=== PATIENT | male | born 1980 | race Hispanic/Latino ===

== ENCOUNTER 2016-06-30 07:54 | Outpatient (CLI) | payer MEDICARE ==
[2016-06-30] MEDS ORDERED: NACL ONE ×2 (09:07→09:29)
--- NOTE | 2016-06-30 10:15 | Cat Scan Report ---
CT scan of chest with IV contrast: Compared to 10/25/12. History: Hodgkin lymphoma. Intrathoracic lymph nodes. Findings: No endobronchial lesion. There is nodular density with calcified wall noted at the anterior mediastinum measuring 1.6 cm in diameter without significant interval change. The inferiorly located density in the previous study is not visualized on the present study. No mediastinal adenopathy is noted. No pleural pericardial effusion. Fibrosis and scarring is noted in the left upper lobe adjacent to mediastinum without significant interval change. Fibrosis and scarring noted in the right upper lobe which was not seen in the previous study. Bilateral faint ground glass densities are noted at the lower lobes which probably represents early interstitial fibrosis among other causes. Normal liver ,spleen and pancreas. Dilated common bile duct measuring 1.1 cm in diameter. Normal gallbladder. Impression: Findings as detailed above. No evidence of adenopathy. Dilated common bile duct. If clinically indicated further evaluation advised.
--- NOTE | 2016-06-30 10:51 | Cat Scan Report ---
CT scan of abdomen and pelvis with IV contrast: History: Hodgkin lymphoma intrathoracic lymph nodes. Findings: Normal liver spleen and pancreas. Dilated common bile duct without dilatation of intrahepatic ducts. Common bile duct diameter 1.1 cm. Normal adrenals kidney parenchyma and bladder. No free pelvic fluid or adenopathy. No evidence of appendicitis or diverticulitis. Gaseous colon with minimal stool in colon. No bony abnormality. Impression: Dilated common bile duct. No mass in the pancreas. No intrahepatic duct dilatation. Gaseous colon with minimal stool in colon.
== END 2016-06-30 07:55 | disposition home or self-care (01) ==
LOC: CT 07:54
PROVIDERS: ATTEND Internal Medicine Hematology & Oncology
DX: C81.72 Other Hodgkin lymphoma, intrathoracic lymph nodes (principal); L13.8 Other specified bullous disorders; L81.9 Disorder of pigmentation, unspecified; J84.10 Pulmonary fibrosis, unspecified
CPT/HCPCS: 71260; 74177; Q9967

== ENCOUNTER 2016-11-24 17:27 | Emergency (ER) | payer MEDICARE ==
[2016-11-24 18:11] LABS: Basophils % (Auto) 0.7 % (0.0-1.8); Eosinophils % (Auto) 1.8 % (0.0-4.3); Hematocrit 44.8 % (35.5-45.6); Hemoglobin 15.4 gm/dl (11.8-15.2); Mean Corpuscular HGB Conc 34 % (32-34); Mean Corpuscular Hemoglobin 32 pg (28-32); Mean Corpuscular Volume 92 fl (84-94); Platelet Count 249 K/mm3 (140-440); Red Blood Count 4.88 M/mm3 (3.65-5.03); Red Cell Distribution Width 14.5 % (13.2-15.2); White Blood Count 6.5 K/mm3 (4.5-11.0)
[2016-11-24 18:28] LABS: BUN/Creatinine Ratio 17.14; Blood Urea Nitrogen 12 mg/dL (9-20); Calcium 9.9 mg/dL (8.4-10.2); Carbon Dioxide 24 mmol/L (22-30); Glucose 98 mg/dL (75-100)
[2016-11-24 18:29] LABS: Anion Gap 19 mmol/L; Chloride 101.8 mmol/L (98-107); Potassium 3.9 mmol/L (3.6-5.0); Sodium 141 mmol/L (137-145)
--- NOTE | 2016-11-24 19:14 | XRay Report ---
FINAL REPORT PROCEDURE: XR CHEST ROUTINE 2V TECHNIQUE: Two views of the chest are obtained HISTORY: CHEST PAIN / SHORT OF BREATH COMPARISON: No prior studies are available for comparison. FINDINGS: The heart is normal in size. There is no focal infiltrate, pneumothorax or pleural effusion. Mild hyperinflation is seen in the lungs. IMPRESSION: There is mild hyperinflation of the lungs.
[2016-11-24] MEDS ORDERED: NACL ONE (22:13)
--- NOTE | 2016-11-24 22:34 | Emergency Department Report ---
HPI - General Chief Complaint: Chest Pain Time Seen by Provider: 11/24/16 21:34 - HPI HPI: Chest pain ED Past Medical Hx - Past Medical History Hx of Cancer: Yes Hx Headaches / Migraines: Yes (MIGRAINE) Hx Seizures: Yes Hx Psychiatric Treatment: Yes (anxiety) Additional medical history: Hodgkins Lymphoma - 5 yr remission. CHRONIC BACK PAIN - Surgical History Hx Appendectomy: Yes Additional Surgical History: right ear surgery x3, cyst removal from left hand - Social History Smoking Status: Current Every Day Smoker Substance Use Type: Alcohol - Medications Home Medications: Home Medications Medication Instructions Recorded Confirmed Last Taken Type Buspirone HCl [busPIRone] 15 mg PO BID 11/24/16 11/24/16 11/24/16 09:00 History Gabapentin [Neurontin] 800 mg PO Q8H 11/24/16 11/24/16 11/24/16 09:00 History LORazepam [LORazepam] 1 mg PO TID 11/24/16 11/24/16 11/24/16 09:00 History levETIRAcetam [Keppra TAB] 500 mg PO BID 11/24/16 11/24/16 11/24/16 09:00 History traMADol [Ultram] 50 mg PO Q6HR PRN #20 tablet 11/25/16 Unknown Rx ED Review of Systems ROS: Stated complaint: CHEST/LFT ARM AND HEAD NUMBNESS Other details as noted in HPI Comment: All other systems reviewed and negative Cardiovascular: chest pain Gastrointestinal: nausea Physical Exam - Physical Exam Vital Signs: Vital Signs 11/24/16 11/24/16 17:41 20:49 Temperature 98.4 F Pulse Rate 70 75 Respiratory 16 20 Rate Blood Pressure 111/64 Blood Pressure 107/59 [Left] O2 Sat by Pulse 98 99 Oximetry Physical Exam: Gen. alert and oriented 3 in no distress Head atraumatic normocephalic Eyes PERR LA EOMI Chest regular rate and rhythm normal S1-S2 lungs clear bilaterally Abdomen soft nondistended Back no point tenderness paravertebral tenderness Neuro no focal deficit. Psych normal mood. ED Course Vital Signs 11/24/16 11/24/16 17:41 20:49 Temperature 98.4 F Pulse Rate 70 75 Respiratory 16 20 Rate Blood Pressure 111/64 Blood Pressure 107/59 [Left] O2 Sat by Pulse 98 99 Oximetry - Reevaluation(s) Reevaluation #1: 11/25/16 00:38 Patient feeling better and wants to go home, advised to follow up with PCP if symptoms continue, return to ER if symptoms worsen. ED Medical Decision Making - Lab Data Result diagrams: 11/24/16 17:49 11/24/16 17:49 Critical care attestation.: If time is entered above; I have spent that time in minutes in the direct care of this critically ill patient, excluding procedure time. ED Disposition Clinical Impression: Chest pain Disposition: DC- TO HOME OR SELFCARE Is pt being admited?: No Does the pt Need Aspirin: No Condition: Stable Instructions: Chest Pain (ED) Prescriptions: traMADol [Ultram] 50 mg PO Q6HR PRN #20 tablet PRN Reason: Pain Referrals: CAN REYNOLDS MD [Primary Care Provider] - 3-5 Days
[2016-11-24] MEDS ORDERED: MORPHINE IV ONE (23:11)
[2016-11-24] MEDS ORDERED: ZOFRAN IV ONE (23:12)
[2016-11-24 23:21] VITALS: BP 108/60
--- NOTE | 2016-11-24 23:42 | Cat Scan Report ---
FINAL REPORT PROCEDURE: CT ANGIO CHEST TECHNIQUE: Computerized tomographic angiography of the chest was performed after the IV injection of iodinated nonionic contrast including image processing. The image data was postprocessed using 2-dimensional multiplanar reformatted (MPR) and 3-dimensional (MIP and/or volume rendered) techniques. HISTORY: CP shortness of breath COMPARISON: Chest x-ray from same day FINDINGS: Mild atelectasis and scarring is suspected medially in the left upper lobe of the lungs. No lung nodules are seen. Minimal hypoventilatory changes are suspect in the lower lungs. No pleural effusion or pneumothorax is seen. In the superior mediastinum near the area of scarring there is a rim calcified rounded soft tissue density measuring 1.6 x 1.5 cm. This could be a lymph node given the location. There is a mildly enlarged precarinal lymph node measuring 1.6 x 1.1 cm. Probable enlarged AP window lymph node is seen measuring 1.3 x 1.0 cm. Likely mild scarring is seen in the left hilum without a discrete lymph node being identified. There is splenomegaly. Likely mild adrenal hyperplasia is seen. The heart is normal in size. The thoracic aorta is normal in size without evidence of dissection. No pulmonary embolus is seen. IMPRESSION: No pulmonary embolus is seen. Mild mediastinal lymphadenopathy is seen, with rim calcification in a prevascular lymph node. Lymphoma or malignant lymphadenopathy is not completely excluded. There is mild scarring and atelectasis in the left upper lobe medially near the mediastinum.
== END 2016-11-25 01:10 | disposition home or self-care (01) ==
LOC: ED 17:27
DX: R07.9 Chest pain, unspecified (principal); G43.909 Migraine, unspecified, not intractable, without status migrainosus; F17.200 Nicotine dependence, unspecified, uncomplicated
CPT/HCPCS: 36415; 71020; 71275; 80048; 84484; 85025; 93005; 93010; 96374; 96375; 99285; J2270; J2405; Q9967

== ENCOUNTER 2016-12-06 08:24 | Outpatient (CLI) | payer MEDICARE ==
[2016-12-06] MEDS ORDERED: NACL ONE (10:43)
--- NOTE | 2016-12-06 14:12 | Cat Scan Report ---
CT CHEST WITH CONTRAST: HISTORY: Hodgkin's lymphoma. TECHNIQUE: Helical CT following IV contrast. Sagittal and coronal reformatted images. COMPARISON: 06/30/16. FINDINGS: The lungs are clear. No evidence for nodule, infiltrate, pleural effusion or pneumothorax. Minor linear scarring in the medial left upper lobe is stable. This may be secondary to radiation changes. The thyroid gland, tracheobronchial tree, esophagus, heart, pericardium and mediastinal vessels are within normal limits. Peripherally calcified lymph node in the anterior mediastinum is stable in size measuring 1.9 cm. This probably represents previously treated lymphadenopathy. No new thoracic lymphadenopathy is appreciated. The bony structures are intact. No evidence for suspicious bone lesion or fracture. Minor degenerative changes are noted. IMPRESSION: Stable findings since 06/30/16. No new thoracic adenopathy or suspicious mass is detected.
--- NOTE | 2016-12-06 14:17 | Cat Scan Report ---
CT SCAN OF THE ABDOMEN AND PELVIS WITH CONTRAST: HISTORY: Hodgkin's lymphoma. TECHNIQUE: Helical CT in 1.25mm intervals following IV contrast. Sagittal and coronal reconstructions. Comparison: 06/30/16. FINDINGS: The liver is normal size and attenuation. No suspicious liver mass or parenchymal disease. Mild prominence of the central intrahepatic biliary ducts is again noted and unchanged. No evidence for cholelithiasis. The pancreas is unremarkable. There is borderline splenomegaly measuring 14 7 m in length which is unchanged. No focal splenic lesion. The kidneys, adrenal glands, ureters and bladder are unremarkable. Normal prostate gland. The bowel loops are normal caliber and wall thickness. The appendix has been surgically removed. The aorta is normal caliber. There is no evidence for abdominal or pelvic adenopathy. The bony structures are intact. No suspicious bony lesion. IMPRESSION: No evidence for disease recurrence or metastasis in the abdomen. No lymphadenopathy is visualized. The spleen is borderline enlarged measuring 14 cm which is unchanged. No focal splenic lesion. No significant change since 06/30/16.
--- NOTE | 2016-12-06 14:21 | Nuclear Medicine Report ---
BONE SCAN: History: Bone pain, lymphoma. Right hip pain. Comparison: CT chest abdomen and pelvis with contrast performed the same day. After injection of isotope, gamma camera imaging of the bony system was done. There is a normal uptake of isotope throughout the bony structures without areas of significantly increased or decreased uptake. Normal uptake in the urinary system is seen. IMPRESSION: Normal bone scan. No suspicious bony lesions are detected. No abnormal uptake in the right hip region.
== END 2016-12-06 08:25 | disposition home or self-care (01) ==
LOC: NM 08:24
PROVIDERS: ATTEND Internal Medicine Hematology & Oncology
DX: C81.72 Other Hodgkin lymphoma, intrathoracic lymph nodes (principal); L13.8 Other specified bullous disorders; L81.9 Disorder of pigmentation, unspecified; M25.551 Pain in right hip; M89.9 Disorder of bone, unspecified; F17.200 Nicotine dependence, unspecified, uncomplicated; G43.909 Migraine, unspecified, not intractable, without status migrainosus
CPT/HCPCS: 71260; 74177; 78306; A9503; Q9967

== ENCOUNTER 2017-01-08 09:42 | Outpatient (CLI) | payer MEDICAID, MEDICARE ==
--- NOTE | 2017-01-09 13:03 | Vascular Lab Report ---
Right Lower Extremity Venous Duplex Study: Reason for Exam: Pain of the right lower extremity. Comments on the Right: All veins visualized are freely compressible without evidence of internal echogenicity. Flow is spontaneous and phasic throughout. No evidence of acute or chronic thrombus is seen in any of the vessels visualized. Comments on the Left: A limited duplex study was done of the proximal veins of the left lower extremity. All veins visualized are freely compressible without evidence of internal echogenicity. Flow is spontaneous and phasic throughout. No evidence of acute or chronic thrombus is seen in any of the vessels visualized. Impression: No evidence of acute or chronic deep venous thrombosis in the right lower extremity.
== END 2017-01-08 09:43 | disposition home or self-care (01) ==
LOC: VAS 09:42
PROVIDERS: ATTEND Internal Medicine Hematology & Oncology
DX: M79.661 Pain in right lower leg (principal); C81.72 Other Hodgkin lymphoma, intrathoracic lymph nodes; L13.8 Other specified bullous disorders; L81.9 Disorder of pigmentation, unspecified

== ENCOUNTER 2017-11-03 21:03 | Emergency (ER) | payer MEDICARE ==
[2017-11-03 22:02] VITALS: BP 151/92
[2017-11-03 22:54] LABS: Basophils # (Auto) 0.2 K/mm3 (0.0-0.1); Eosinophils # (Auto) 0.1 K/mm3 (0.0-0.4); Eosinophils % (Auto) 1.6 % (0.0-4.3); Hematocrit 45.8 % (35.5-45.6); Hemoglobin 15.5 gm/dl (11.8-15.2); Lymphocytes # (Auto) 1.7 K/mm3 (1.2-5.4); Lymphocytes % (Auto) 20.1 % (13.4-35.0); Mean Corpuscular HGB Conc 34 % (32-34); Mean Corpuscular Hemoglobin 31 pg (28-32); Mean Corpuscular Volume 92 fl (84-94); Monocytes # (Auto) 0.4 K/mm3 (0.0-0.8); Platelet Count 282 K/mm3 (140-440); Red Blood Count 4.97 M/mm3 (3.65-5.03); Red Cell Distribution Width 13.6 % (13.2-15.2)
[2017-11-03 23:13] LABS: Alanine Aminotransferase 13 units/L (7-56); Albumin 4.5 g/dL (3.9-5); BUN/Creatinine Ratio 14; Blood Urea Nitrogen 10 mg/dL (9-20); Hemolysis Index 3
== END 2017-11-03 22:13 | disposition left against medical advice (07) ==
LOC: ED 21:03
DX: R56.9 Unspecified convulsions (principal); Z53.21 Procedure and treatment not carried out due to patient leaving prior to being seen by health care provider
CPT/HCPCS: 36415; 80053; 83735; 85025

== ENCOUNTER 2018-01-11 19:19 | Emergency (ER) | payer MEDICARE ==
[2018-01-11 19:53] VITALS: BP 126/77
[2018-01-11] MEDS ORDERED: NACL 0.9% 1000 ML 1,000 ML IV ONE (19:54)
[2018-01-11 20:19] LABS: Basophils # (Auto) 0.1 K/mm3 (0.0-0.1); Basophils % (Auto) 0.9 % (0.0-1.8); Eosinophils # (Auto) 0.3 K/mm3 (0.0-0.4); Eosinophils % (Auto) 3.7 % (0.0-4.3); Hematocrit 47.1 % (35.5-45.6); Hemoglobin 16.1 gm/dl (11.8-15.2); Lymphocytes # (Auto) 2.1 K/mm3 (1.2-5.4); Lymphocytes % (Auto) 30.9 % (13.4-35.0); Mean Corpuscular HGB Conc 34 % (32-34); Mean Corpuscular Hemoglobin 31 pg (28-32); Mean Corpuscular Volume 91 fl (84-94); Monocytes # (Auto) 0.6 K/mm3 (0.0-0.8); Monocytes % (Auto) 8.1 % (0.0-7.3); Platelet Count 280 K/mm3 (140-440); Red Blood Count 5.17 M/mm3 (3.65-5.03); Red Cell Distribution Width 14.5 % (13.2-15.2)
[2018-01-11 21:08] LABS: Alanine Aminotransferase 13 units/L (7-56); Albumin 4.4 g/dL (3.9-5); BUN/Creatinine Ratio 16; Blood Urea Nitrogen 14 mg/dL (9-20); Calcium 9.4 mg/dL (8.4-10.2); Hemolysis Index 7
[2018-01-11 21:50] LABS: Bacteria,Urine 1+ /HPF (Negative); Bilirubin,Urine NEG (Negative); Blood,Urine NEG (Negative); Color,Urine Yellow (Yellow); Mucus,Urine FEW /HPF; Protein,Urine <15 mg/dL mg/dL (Negative)
== END 2018-01-12 | disposition left against medical advice (07) ==
LOC: ED 19:19
DX: R51 Headache (principal); Z53.21 Procedure and treatment not carried out due to patient leaving prior to being seen by health care provider
CPT/HCPCS: 36415; 80053; 81001; 85025

== ENCOUNTER 2018-10-03 12:51 | Emergency (ER) | payer MEDICARE ==
[2018-10-03 13:05] VITALS: BP 115/76
--- NOTE | 2018-10-03 13:05 | Emergency Department Report ---
Blank Doc - Documentation Documentation: This is a 37-year-old male that presents with right hand pain. This initial assessment/diagnostic orders/clinical plan/treatment(s) is/are subject to change based on patient's health status, clinical progression and re- assessment by fellow clinical providers in the ED. Further treatment and workup at subsequent clinical providers discretion. Patient/guardians urged not to elope from the ED as their condition may be serious if not clinically assessed and managed. Initial orders include: 1- Patient sent to [facility] for further evaluation and treatment 2- xray
--- NOTE | 2018-10-03 13:17 | XRay Report ---
RIGHT HAND, 3 views: History: Right hand pain. The bony architecture is intact. Bony alignment is normal. No soft tissue abnormalities are seen. The joint spaces appear preserved. IMPRESSION: Normal right hand.
--- NOTE | 2018-10-03 14:34 | Emergency Department Report ---
ED Upper Extremity Inj HPI - General Chief Complaint: Extremity Injury, Upper Stated Complaint: R HAND SWOLLEN/INJURY Time Seen by Provider: 10/03/18 13:03 Source: patient Mode of arrival: Ambulatory Limitations: No Limitations - History of Present Illness Initial Comments: This is a 37-year-old male who presents to the emergency room with swe lling and pain to the right hand. Patient states he punched a washing machine yesterday and noticed bleeding and swelling over the third PIP. He is taking NSAIDs for pain with relief. He is concerned of possible fracture because of limited ROM and pain. Denies weakness, numbness or tingling, or obvious deformity. MD Complaint: Injury to:: right, hand Onset/Timin -: days(s) Other Extremity Injury: Hand: Right Other Injuries: none Handedness: right Place: home Severity scale (0 -10): 7 Improves With: medication Worsens With: movement of extremity Context: direct blow Associated Symptoms: denies other symptoms Treatments Prior to Arrival: NSAIDS - Related Data Home Medications Medication Instructions Recorded Confirmed Last Taken Buspirone HCl [busPIRone] 15 mg PO BID 11/24/16 11/24/16 11/24/16 09:00 Gabapentin [Neurontin] 800 mg PO Q8H 11/24/16 11/24/16 11/24/16 09:00 LORazepam 1 mg PO TID 11/24/16 11/24/16 11/24/16 09:00 levETIRAcetam [Keppra TAB] 500 mg PO BID 11/24/16 11/24/16 11/24/16 09:00 Previous Rx's Medication Instructions Recorded Last Taken Type HYDROcodone/APAP 5-325 [Vanderbilt 1 each PO Q6HR PRN #5 tablet 11/25/16 Unknown Rx 5/325] Ibuprofen [Motrin] 800 mg PO Q8HR #30 tablet 02/19/18 Unknown Rx Sulfamethoxazole/Trimethoprim 1 each PO BID #20 tablet 02/19/18 Unknown Rx [Bactrim DS TAB] Benzonatate [Tessalon Perle] 100 mg PO TID PRN #30 capsule 04/22/18 Unknown Rx Fluticasone [Flonase] 1 spray NS QDAY #1 bottle 04/22/18 Unknown Rx Loratadine [Claritin] 10 mg PO DAILY #30 tablet 04/22/18 Unknown Rx guaiFENesin/DEXTROMETHORPHAN 1 each PO BID #14 tab.er.12h 04/22/18 Unknown Rx [Mucinex Dm ER 600-30 mg Tablet] Allergies Allergy/AdvReac Type Severity Reaction Status Date / Time No Known Allergies Allergy Verified 11/24/16 20:48 ED Review of Systems ROS: Stated complaint: R HAND SWOLLEN/INJURY Other details as noted in HPI Constitutional: denies: chills, fever Respiratory: denies: cough, shortness of breath, wheezing Cardiovascular: denies: chest pain, palpitations Gastrointestinal: denies: abdominal pain, nausea, diarrhea Musculoskeletal: arthralgia (right hand swelling and pain). denies: back pain, joint swelling Skin: lesions. denies: rash Neurological: denies: headache, weakness, paresthesias Psychiatric: denies: anxiety, depression ED Past Medical Hx - Past Medical History Previous Medical History?: Yes Hx Headaches / Migraines: Yes (MIGRAINE) Hx Seizures: Yes Hx Psychiatric Treatment: Yes (anxiety) Additional medical history: Hodgkins Lymphoma - 6 yr remission. CHRONIC BACK PAIN - Surgical History Hx Appendectomy: Yes Additional Surgical History: right ear surgery x3, cyst removal from left hand - Social History Smoking Status: Current Every Day Smoker Substance Use Type: None - Medications Home Medications: Home Medications Medication Instructions Recorded Confirmed Last Taken Type Buspirone HCl [busPIRone] 15 mg PO BID 11/24/16 11/24/16 11/24/16 09:00 History Gabapentin [Neurontin] 800 mg PO Q8H 11/24/16 11/24/16 11/24/16 09:00 History LORazepam 1 mg PO TID 11/24/16 11/24/16 11/24/16 09:00 History levETIRAcetam [Keppra TAB] 500 mg PO BID 11/24/16 11/24/16 11/24/16 09:00 History HYDROcodone/APAP 5-325 [Vanderbilt 1 each PO Q6HR PRN #5 tablet 11/25/16 Unknown Rx 5/325] Ibuprofen [Motrin] 800 mg PO Q8HR #30 tablet 02/19/18 Unknown Rx Sulfamethoxazole/Trimethoprim 1 each PO BID #20 tablet 02/19/18 Unknown Rx [Bactrim DS TAB] Benzonatate [Tessalon Perle] 100 mg PO TID PRN #30 capsule 04/22/18 Unknown Rx Fluticasone [Flonase] 1 spray NS QDAY #1 bottle 04/22/18 Unknown Rx Loratadine [Claritin] 10 mg PO DAILY #30 tablet 04/22/18 Unknown Rx guaiFENesin/DEXTROMETHORPHAN 1 each PO BID #14 tab.er.12h 04/22/18 Unknown Rx [Mucinex Dm ER 600-30 mg Tablet] ED Physical Exam - General Limitations: No Limitations General appearance: alert, in no apparent distress - Respiratory Respiratory exam: Present: normal lung sounds bilaterally. Absent: respiratory distress - Cardiovascular Cardiovascular Exam: Present: regular rate, normal rhythm. Absent: systolic murmur, diastolic murmur, rubs, gallop - GI/Abdominal GI/Abdominal exam: Present: soft, normal bowel sounds - Expanded Upper Extremity Exam Right Elbow exam: Present: normal inspection, full ROM Forearm Wrist exam: Present: normal inspection, full ROM Hand Wrist exam: Present: full ROM (pain with ROM), tenderness, swelling, abrasion (1/2 cm abrasion over 3rd PIP, swelling and tenderness on palpation, no discharge). Absent: laceration, ecchymosis, deformity, crepidus, dislocation, erythema, amputation, nail avulsion, subungual hematoma Neuro motor exam: Present: wrist extension intact, thumb opposition intact, thumb IP flexion intact, thumb adduction intact, fingers 2-5 abduction intact Neurosensory exam: Present: radial nerve intact, ulnar nerve intact, median nerve intact Vascular: Present: normal capillary refill, radial pulse - Neurological Exam Neurological exam: Present: alert, oriented X3, normal gait - Psychiatric Psychiatric exam: Present: normal affect, normal mood - Skin Skin exam: Present: warm, dry, intact, normal color. Absent: rash ED Course Vital Signs 10/03/18 13:03 Temperature 98.2 F Pulse Rate 83 Respiratory 16 Rate Blood Pressure 115/76 O2 Sat by Pulse 98 Oximetry ED Medical Decision Making - Radiology Data Radiology results: report reviewed RIGHT HAND, 3 views: History: Right hand pain. The bony architecture is intact. Bony alignment is normal. No soft tissue abnormalities are seen. The joint spaces appear preserved. IMPRESSION: Normal right hand. - Medical Decision Making Patient was examined by me. Vitals are normal and patient is in no acute distress. Obtained a x-ray of right hand with no acute findings. Findings are suggestive of strain/sprain hand. Patient given handout on RICE therapy. He refused orville wrap. Instructed to take OTC NSAIDs for pain. Plan discussed with patient to discharge home and treat outpatient. He agrees with ER plan. Patient discharged home in stable condition. Follow up with PCP in 2-3 days. Critical care attestation.: If time is entered above; I have spent that time in minutes in the direct care of this critically ill patient, excluding procedure time. ED Disposition Clinical Impression: Hand pain, right, Sprain and strain of hand Disposition: DC- TO HOME OR SELFCARE Is pt being admited?: No Does the pt Need Aspirin: No Condition: Stable Instructions: Hand Sprain (ED), RICE Therapy (ED) Additional Instructions: Rest Use ice or heat on affected area for 20 minutes and off for 2 hours. Take [id number] pain medication as needed for pain. Follow up with Primary Care Provider in 2-3 days. Referrals: [facility] [Outside] - 3-5 Days [facility] [Outside] - 3-5 Days [facility] [Outside] - 3-5 Days Forms: Work/School Release Form(ED) Time of Disposition: 14:31
== END 2018-10-03 14:43 | disposition home or self-care (01) ==
LOC: ED 12:51
DX: S63.91XA Sprain of unspecified part of right wrist and hand, initial encounter (principal); G43.909 Migraine, unspecified, not intractable, without status migrainosus; M54.9 Dorsalgia, unspecified; G89.29 Other chronic pain; F17.200 Nicotine dependence, unspecified, uncomplicated; Z90.49 Acquired absence of other specified parts of digestive tract; Z85.71 Personal history of Hodgkin lymphoma; W22.09XA Striking against other stationary object, initial encounter; Y93.89 Activity, other specified; Y92.098 Other place in other non-institutional residence as the place of occurrence of the external cause; Y99.8 Other external cause status
CPT/HCPCS: 99283

== ENCOUNTER 2019-04-27 08:57 | Emergency (ER) | payer MEDICARE ==
[2019-04-27] MEDS ORDERED: IPRATROPIUM/ALBUTEROL SULFATE 3 ML AMPUL.NEB IH ONE ×2 (11:30→14:34)
--- NOTE | 2019-04-27 12:18 | XRay Report ---
CHEST 2 VIEWS INDICATION / CLINICAL INFORMATION: MAIN: productive cough for 2 days. COMPARISON: Chest CT 12/06/2016 FINDINGS: SUPPORT DEVICES: None. HEART / MEDIASTINUM: Normal heart size. Calcified lymph node in the anterior mediastinum best seen on previous chest CTs is noted on the lateral projection. LUNGS / PLEURA: No significant pulmonary or pleural abnormality. No pneumothorax. ADDITIONAL FINDINGS: No significant additional findings. IMPRESSION: No acute finding. Signer Name: Jason Spear MD Signed: 04/27/2019 12:13 PM Workstation Name: [id number]
--- NOTE | 2019-04-27 12:29 | Emergency Department Report ---
- General Chief Complaint: Upper Respiratory Infection Stated Complaint: FLU LIKE SYMPTOMS Time Seen by Provider: 04/27/19 11:21 Source: patient Mode of arrival: Ambulatory Limitations: No Limitations - History of Present Illness Initial Comments: patient is a 38-year-old male presents emergency room with complaints of a productive cough that began yesterday. He has associated generalized body aches and sore throat. He denies any ear pain, vomiting, diarrhea, fever. He denies any sick contacts. He has a past medical history of Hodgkin's lymphoma in remission and seizures. He denies any allergies medications. Patient states he is a current smoker. - Related Data Home Medications Medication Instructions Recorded Confirmed Last Taken Buspirone HCl [busPIRone] 15 mg PO BID 11/24/16 11/24/16 11/24/16 09:00 Gabapentin [Neurontin] 800 mg PO Q8H 11/24/16 11/24/16 11/24/16 09:00 LORazepam 1 mg PO TID 11/24/16 11/24/16 11/24/16 09:00 levETIRAcetam [Keppra TAB] 500 mg PO BID 11/24/16 11/24/16 11/24/16 09:00 Previous Rx's Medication Instructions Recorded Last Taken Type HYDROcodone/APAP 5-325 [[place] 1 each PO Q6HR PRN #5 tablet 11/25/16 Unknown Rx 5/325] Ibuprofen [Motrin] 800 mg PO Q8HR #30 tablet 02/19/18 Unknown Rx Sulfamethoxazole/Trimethoprim 1 each PO BID #20 tablet 02/19/18 Unknown Rx [Bactrim DS TAB] Benzonatate [Tessalon Perle] 100 mg PO TID PRN #30 capsule 04/22/18 Unknown Rx Fluticasone [Flonase] 1 spray NS QDAY #1 bottle 04/22/18 Unknown Rx Loratadine (Nf) [Claritin] 10 mg PO DAILY #30 tablet 04/22/18 Unknown Rx guaiFENesin/DEXTROMETHORPHAN 1 each PO BID #14 tab.er.12h 04/22/18 Unknown Rx [Mucinex Dm ER 600-30 mg Tablet] ALBUTEROL Inhaler (OR & NICU) 2 puff IH QID PRN #8.5 gram 04/27/19 Unknown Rx [ProAir HFA Inhaler] Azithromycin [Zithromax TAB] 250 mg PO QDAY 5 Days #6 tablet 04/27/19 Unknown Rx Benzonatate [Tessalon Perles] 100 mg PO Q8HR PRN #20 capsule 04/27/19 Unknown Rx Prednisone [predniSONE 10 mg 10 mg PO .TAPER #1 tab.ds.pk 04/27/19 Unknown Rx (6-Day Pack, 21 Tabs)] Allergies Allergy/AdvReac Type Severity Reaction Status Date / Time No Known Allergies Allergy Verified 11/24/16 20:48 ED Review of Systems ROS: Stated complaint: FLU LIKE SYMPTOMS Other details as noted in HPI Comment: All other systems reviewed and negative ED Past Medical Hx - Past Medical History Previous Medical History?: Yes Hx Headaches / Migraines: Yes (MIGRAINE) Hx Seizures: Yes Hx Psychiatric Treatment: Yes (anxiety) Additional medical history: Hodgkins Lymphoma - 6 yr remission. CHRONIC BACK PAIN - Surgical History Past Surgical History?: Yes Hx Appendectomy: Yes Additional Surgical History: right ear surgery x3, cyst removal from left hand - Social History Smoking Status: Current Every Day Smoker Substance Use Type: Alcohol, Marijuana - Medications Home Medications: Home Medications Medication Instructions Recorded Confirmed Last Taken Type Buspirone HCl [busPIRone] 15 mg PO BID 11/24/16 11/24/16 11/24/16 09:00 History Gabapentin [Neurontin] 800 mg PO Q8H 11/24/16 11/24/16 11/24/16 09:00 History LORazepam 1 mg PO TID 11/24/16 11/24/16 11/24/16 09:00 History levETIRAcetam [Keppra TAB] 500 mg PO BID 11/24/16 11/24/16 11/24/16 09:00 History HYDROcodone/APAP 5-325 [[place] 1 each PO Q6HR PRN #5 tablet 11/25/16 Unknown Rx 5/325] Ibuprofen [Motrin] 800 mg PO Q8HR #30 tablet 02/19/18 Unknown Rx Sulfamethoxazole/Trimethoprim 1 each PO BID #20 tablet 02/19/18 Unknown Rx [Bactrim DS TAB] Benzonatate [Tessalon Perle] 100 mg PO TID PRN #30 capsule 04/22/18 Unknown Rx Fluticasone [Flonase] 1 spray NS QDAY #1 bottle 04/22/18 Unknown Rx Loratadine (Nf) [Claritin] 10 mg PO DAILY #30 tablet 04/22/18 Unknown Rx guaiFENesin/DEXTROMETHORPHAN 1 each PO BID #14 tab.er.12h 04/22/18 Unknown Rx [Mucinex Dm ER 600-30 mg Tablet] ALBUTEROL Inhaler (OR & NICU) 2 puff IH QID PRN #8.5 gram 04/27/19 Unknown Rx [ProAir HFA Inhaler] Azithromycin [Zithromax TAB] 250 mg PO QDAY 5 Days #6 tablet 04/27/19 Unknown Rx Benzonatate [Tessalon Perles] 100 mg PO Q8HR PRN #20 capsule 04/27/19 Unknown Rx Prednisone [predniSONE 10 mg 10 mg PO .TAPER #1 tab.ds.pk 04/27/19 Unknown Rx (6-Day Pack, 21 Tabs)] ED Physical Exam - General Limitations: No Limitations General appearance: alert, in no apparent distress - Head Head exam: Present: atraumatic, normocephalic - Eye Eye exam: Present: normal appearance - ENT ENT exam: Present: mucous membranes moist - Respiratory Respiratory exam: Present: wheezes (very mild inspiratory wheeze). Absent: respiratory distress, rales, rhonchi, stridor, chest wall tenderness, accessory muscle use, decreased breath sounds, prolonged expiratory - Cardiovascular Cardiovascular Exam: Present: regular rate, normal rhythm, normal heart sounds. Absent: systolic murmur, diastolic murmur, rubs, gallop - Neurological Exam Neurological exam: Present: alert, oriented X3 - Psychiatric Psychiatric exam: Present: normal affect, normal mood - Skin Skin exam: Present: warm, dry, intact ED Course Vital Signs 04/27/19 04/27/19 04/27/19 09:01 11:09 15:23 Temperature 98.3 F 98.7 F Pulse Rate 94 H 72 Respiratory 20 16 18 Rate Blood Pressure 122/80 Blood Pressure 118/60 [Right] O2 Sat by Pulse 93 96 Oximetry ED Medical Decision Making - Lab Data Result diagrams: 04/27/19 11:58 04/27/19 11:57 Lab Results 04/27/19 04/27/19 04/27/19 Range/Units 11:54 11:57 11:58 WBC 5.0 (4.5-11.0) K/mm3 RBC 5.10 H (3.65-5.03) M/mm3 Hgb 16.0 H (11.8-15.2) gm/dl Hct 45.2 (35.5-45.6) % MCV 89 (84-94) fl MCH 31 (28-32) pg MCHC 35 H (32-34) % RDW 14.1 (13.2-15.2) % Plt Count 179 (140-440) K/mm3 Lymph % (Auto) 18.2 (13.4-35.0) % [place] % (Auto) 12.2 H (0.0-7.3) % Eos % (Auto) 0.1 (0.0-4.3) % Baso % (Auto) 0.9 (0.0-1.8) % Lymph # 0.9 L (1.2-5.4) K/mm3 [place] # 0.6 (0.0-0.8) K/mm3 Eos # 0.0 (0.0-0.4) K/mm3 Baso # 0.0 (0.0-0.1) K/mm3 Seg Neutrophils % 68.6 (40.0-70.0) % Seg Neutrophils # 3.4 (1.8-7.7) K/mm3 Sodium 134 L (137-145) mmol/L Potassium 3.7 (3.6-5.0) mmol/L Chloride 94.5 L (98-107) mmol/L Carbon Dioxide 21 L (22-30) mmol/L Anion Gap 22 mmol/L BUN 15 (9-20) mg/dL Creatinine 1.0 (0.8-1.5) mg/dL Estimated GFR > 60 ml/min BUN/Creatinine Ratio 15 % Glucose 80 (75-100) mg/dL Calcium 9.8 (8.4-10.2) mg/dL Influenza A (Rapid) Negative (Negative) Influenza B (Rapid) Negative (Negative) Vital Signs 04/27/19 04/27/19 04/27/19 09:01 11:09 15:23 Temperature 98.3 F 98.7 F Pulse Rate 94 H 72 Respiratory 20 16 18 Rate Blood Pressure 122/80 Blood Pressure 118/60 [Right] O2 Sat by Pulse 93 96 Oximetry - Radiology Data Radiology results: report reviewed chest XR no acute findings - Medical Decision Making patient is a 38-year-old male presents emergency room with complaints of a productive cough that began yesterday. He has associated generalized body aches and sore throat. He denies any ear pain, vomiting, diarrhea, fever. He denies any sick contacts. He has a past medical history of Hodgkin's lymphoma in remission and seizures. He denies any allergies medications. Patient states he is a current smoker. initial vitals with mild hypoxia, on repeat in exam room it is 95% on RA. labs are stable, mild dehydration, discussed oral rehydration with pt. rapid flu is negative. chest XR no acute findings. on exam: very mild inspiratory wheeze. Patient given DuoNeb and breath sounds are clear with no wheezing, rales, rhonchi. Given that patient is a smoker and is having a productive cough will treat patient for acute bronchitis. wells criteria is low risk for a PE. Patient given prescription for steroids, antibiotics, albuterol inhaler, cough medication. advised pt to please take medication as prescribed. Please consider stop smoking. Follow-up with primary care doctor the next 2-3 days. Return to the emergency room for any new or worsening symptoms. - Differential Diagnosis PNA, URI, influenza, viral syndrome, otitis, pharyngitis, bronchitis Critical care attestation.: If time is entered above; I have spent that time in minutes in the direct care of this critically ill patient, excluding procedure time. ED Disposition Clinical Impression: Acute bronchitis Qualifiers: Bronchitis organism: unspecified organism Qualified Code(s): J20.9 - Acute bronchitis, unspecified Disposition: DC-01 TO HOME OR SELFCARE Is pt being admited?: No Does the pt Need Aspirin: No Condition: Stable Instructions: How to Stop Smoking (ED), Acute Bronchitis (ED) Additional Instructions: Please take medication as prescribed. Please consider stop smoking. Follow-up with primary care doctor the next 2-3 days. Return to the emergency room for any new or worsening symptoms. Prescriptions: Prednisone [predniSONE 10 mg (6-Day Pack, 21 Tabs)] 10 mg PO .TAPER #1 tab.ds.pk ALBUTEROL Inhaler (OR & NICU) [ProAir HFA Inhaler] 2 puff IH QID PRN #8.5 gram PRN Reason: Shortness Of Breath Benzonatate [Tessalon Perles] 100 mg PO Q8HR PRN #20 capsule PRN Reason: cough Azithromycin [Zithromax TAB] 250 mg PO QDAY 5 Days #6 tablet Referrals: DARIANA MANN MD [Staff Physician] - 2-3 Days [facility] [Provider Group] - 2-3 Days Time of Disposition: 15:05 Print Language: [place]
[2019-04-27 12:44] LABS: Basophils % (Auto) 0.9 % (0.0-1.8); Eosinophils % (Auto) 0.1 % (0.0-4.3); Hematocrit 45.2 % (35.5-45.6); Lymphocytes # (Auto) 0.9 K/mm3 (1.2-5.4); Lymphocytes % (Auto) 18.2 % (13.4-35.0); Mean Corpuscular HGB Conc 35 % (32-34); Mean Corpuscular Volume 89 fl (84-94); Monocytes # (Auto) 0.6 K/mm3 (0.0-0.8); Monocytes % (Auto) 12.2 % (0.0-7.3); Platelet Count 179 K/mm3 (140-440); Red Cell Distribution Width 14.1 % (13.2-15.2)
[2019-04-27 13:19] LABS: BUN/Creatinine Ratio 15; Blood Urea Nitrogen 15 mg/dL (9-20); Calcium 9.8 mg/dL (8.4-10.2); Hemolysis Index 1
[2019-04-27 15:24] VITALS: BP 118/60
== END 2019-04-27 15:25 | disposition home or self-care (01) ==
LOC: ED 08:57
DX: J20.9 Acute bronchitis, unspecified (principal)
CPT/HCPCS: 36415; 71046; 80048; 85025; 87400; 94640